=== PATIENT | female | born 1960 | race Caucasian/White ===

== ENCOUNTER → 2025-06-28 | Day surgery (SDC) | payer MEDICARE, MEDICAID ==
[~2025-06-28] VITALS: Ht 160 cm; Wt 51.7 kg
[~2025-06-28] MED LIST: ACETAMINOPHEN 1,000MG/100ML PREMIX IV PRN; ACETAMINOPHEN 1000MG/100ML 100 ML IV ONE; ACETAMINOPHEN 1000MG/100ML 100 ML IV PRN; BUPIVACAINE HCL/PF 0.5% (5MG/ML) 10ML ONE; DEXAMETHASONE 4MG/ML 1ML VIAL ONE; FAMOTIDINE 20MG/2ML VIAL IV ONE; FAMOTIDINE 20MG/2ML VIAL IV PRN; HYDRALAZINE 20MG/ML VIAL IV PRN; HYDROMORPHONE HCL/PF 1MG/ML INJ IV PRN; LABETALOL 5MG/ML 4ML INJ IV PRN; LACTATED RINGERS 1,000 ML IV SCH; LEVO75TA7 PO; LIDOCAINE HCL 1% 10 MG/ML 10ML VIAL ONE; MEPERIDINE HCL/PF 25MG/ML CPJ IV PRN; ONDANSETRON HCL 4MG/2ML INJ IV PRN; POLYMYXIN B SULFATE 500000 UNITS/VIAL ONE; T4 PO; TRIAMCINOLONE ACETONIDE 40MG/ML 1ML VIAL ONE; VANCOMYCIN HCL 1GM VIAL ONE
== END | disposition home or self-care (01) ==
LOC: OR 11:01
PROVIDERS: ATTEND Podiatrist Foot & Ankle Surgery
DX: M20.11 Hallux valgus (acquired), right foot (principal); M25.774 Osteophyte, right foot; M77.8 Other enthesopathies, not elsewhere classified; E78.5 Hyperlipidemia, unspecified; Z79.899 Other long term (current) drug therapy; Z98.890 Other specified postprocedural states
CPT/HCPCS: 28292; 28122; J0131; J0665; J1100; J1308; J2003; J3490; J3301; J3373